=== PATIENT | female | born 1970 | race Caucasian/White ===

== ENCOUNTER 2022-03-31 21:40 | Emergency (ER) | payer OTHER, SELFPAY ==
[2022-03-31 21:54] VITALS: BP 135/87; PULSE 87; RESP 18; TEMP 36.4; O2SAT 97
[2022-03-31 22:43] LABS: Influenza A QL RT-PCR Negative (Negative); Influenza B QL RT-PCR Negative (Negative); RSV RNA, RT-PCR Negative (Negative); SARS-CoV-2 RNA PCR Negative
--- NOTE | 2022-03-31 22:56 | ED.GENADULT ---
HPI - General Adult General Chief complaint: Upper Respiratory Infection Stated complaint: cough Time Seen by Provider: 03/31/22 22:09 History of Present Illness HPI narrative: 52-year-old female presented to the emerged department for evaluation of worsening cough. Patient states that symptoms have been ongoing for approximately 1 week. Patient did have follow-up with her primary care physician and was started on a Z-Tay. Patient states she still has 3 days left on this. Patient was also taking Tessalon Perles without significant improvement. Patient states that she has been having cough that does cause temporary increased shortness of breath. Patient is not a smoker and denies any underlying history of lung disease. Patient is vaccinated against COVID but not against flu. Related Data Allergies Allergy/AdvReac Type Severity Reaction Status Date / Time No Known Allergies Allergy Mild Verified 03/31/22 22:10 Review of Systems Review of Systems: CONSTITUTIONAL: Denies fever, chills, or sweats. EYES: Denies visual changes, redness, or discharge. ENT: Denies rhinorrhea, congestion, sore throat, or otalgia. CARDIOVASCULAR: Denies chest pain, palpitations, or edema. RESPIRATORY: See HPI GASTROINTESTINAL: Denies abdominal pain, nausea, vomiting, or diarrhea. GENITOURINARY: Denies dysuria or hematuria. SKIN: Denies rash or itching. MUSCULOSKELETAL: Denies back pain, joint pain, or myalgia. NEUROLOGIC: Denies headache, numbness, or weakness. Exam Narrative: APPEARANCE: Well appearing, no pain, no distress, well-nourished. HEAD: normocephalic, atraumatic. EYES: PERRLA/EOMI, conjunctivae clear. NOSE: Normal no drainage THROAT: Pharynx clear, no exudate. NECK: Supple. No adenopathy, no masses. RESPIRATORY: Airway patent, respirations nonlabored. Clear to auscultation bilaterally, no rales, rhonchi, wheezing. CARDIOVASCULAR: Regular rate and rhythm without murmurs rubs or gallops. ABDOMINAL: Soft, nontender, nondistended, normal bowel sounds MUSCULOSKELETAL: Moves all extremities. Strength/ROM intact, No edema, No calf tenderness. NEURO: Alert. Cranial nerves II through XII intact. SKIN: Warm, dry. Normal Color Course Course Emergency Course: Patient was given Tylenol 3 to also help with her cough. Patient was provided an albuterol inhaler to help with cough and bronchospasm. Patient was encouraged to continue taking the Tessalon Perles and to to finish her prescription of azithromycin. Patient lungs were clear to auscultation and the patient was saturating 97% on room air with no distress. Patient was negative for influenza COVID and RSV. Patient was encouraged of close follow-up with her primary care physician. All question concerns were addressed Vital Signs Vital signs: Vital Signs Temperature 97.6 F 03/31/22 21:54 Pulse Rate 87 03/31/22 21:54 Respiratory Rate 18 03/31/22 21:54 Blood Pressure 135/87 03/31/22 21:54 Pulse Oximetry 97 03/31/22 21:54 Oxygen Delivery Room Air 03/31/22 21:54 Temperature 97.6 F 03/31/22 21:54 Pulse Rate 73 03/31/22 23:30 Respiratory Rate 20 04/01/22 00:02 Blood Pressure 135/87 03/31/22 21:54 Pulse Oximetry 100 04/01/22 00:02 Oxygen Delivery Room Air 03/31/22 21:54 Medical Decision Making Vital Signs Vital Signs: Vital Signs Temperature 97.6 F 03/31/22 21:54 Pulse Rate 87 03/31/22 21:54 Respiratory Rate 18 03/31/22 21:54 Blood Pressure 135/87 03/31/22 21:54 Pulse Oximetry 97 03/31/22 21:54 Oxygen Delivery Room Air 03/31/22 21:54 Temperature 97.6 F 03/31/22 21:54 Pulse Rate 73 03/31/22 23:30 Respiratory Rate 20 04/01/22 00:02 Blood Pressure 135/87 03/31/22 21:54 Pulse Oximetry 100 04/01/22 00:02 Oxygen Delivery Room Air 03/31/22 21:54 Lab Data Labs: Lab Results 03/31/22 Range/Units 22:03 Influenza A (RT-PCR) Negative (Negative) Influenza B (RT-PCR) Negative (Negative) R
[2022-03-31] MEDS: ACETAMINOPHEN/CODEINE (*CRX) 300/30 MG TABLET 1 TAB PO (22:59)
[2022-03-31 23:30] VITALS: PULSE 73; RESP 16
[2022-03-31] MEDS: ALBUTEROL SULFATE NEB 2.5 MG/3 ML INH 5 MG INHALATION (23:30)
[2022-04-01 00:02] VITALS: RESP 20; O2SAT 100
== END 2022-04-01 00:04 | disposition home or self-care (01) ==
PROVIDERS: Emergency Provider Emergency Medicine
DX: R05.9 Cough, unspecified (principal); J98.01 Acute bronchospasm; Z20.822 Contact with and (suspected) exposure to COVID-19
CPT/HCPCS: 87637; 94640; 99283; A9270